=== PATIENT | male | born 1970 | race Caucasian/White ===

== ENCOUNTER 2023-07-19 20:25 | Emergency (ER) | payer BC, SELFPAY ==
[2023-07-19 20:30] VITALS: BP 179/88; PULSE 74; RESP 18; TEMP 37.1; O2SAT 99; BMI 36.3
--- NOTE | 2023-07-19 20:37 | ECG_ITS ---
[facility] Test Date: 2023-07-19 Pat Name: Yash Allen Department: Room: - Gender: Male Audiovisual Equipment Operator: : 1970 Requested By: [id number] Order Number: [id number] Reading MD: BRENNON SARMIENTO Measurements Intervals [place] Rate: 61 P: 56 NV: 164 QRS: 53 QRSD: 94 T: 28 QT: 378 QTc: 382 Interpretive Statements 1100 Sinus rhythm 9110 normal ECG No previous ECG available for comparison Electronically Signed On 07-20-2023 11:09:19 EDT by BRENNON SARMIENTO
[2023-07-19 20:47] LABS: Basophils Percent Auto 0.3 % (0.2-2.0); Eosinophils Absolute Auto 0.1 10^3/uL (0.0-0.7); Hematocrit 47.1 % (42.0-54.0); Hemoglobin 15.8 g/dL (14.0-18.0); Immature Granulocytes Abs Auto 0.01 10^3/uL (0.00-0.03); Immature Granulocytes Pct Auto 0.1 % (0.0-0.5); Lymphocytes Absolute Auto 2.6 10^3/uL (1.2-3.8); Lymphocytes Percent Auto 37.3 % (20.5-60.0); Mean Corpuscular HGB Conc 33.5 g/dL (29.9-35.2); Mean Corpuscular Hemoglobin 30.6 pg (25.9-34.0); Mean Corpuscular Volume 91.3 fL (80.0-94.0); Mean Platelet Volume 10.9 fL (9.5-13.5); Monocytes Absolute Auto 0.7 10^3/uL (0.3-0.8); Monocytes Percent Auto 10.2 % (1.7-12.0); Neutrophils Absolute Auto 3.6 10^3/uL (1.4-6.5); Neutrophils Percent Auto 51.1 % (43.0-75.0); Platelet Count 197 10^3/uL (150-450); Red Blood Count 5.16 10^6/uL (4.70-6.10)
[2023-07-19 20:47] LABS: Bilirubin Urine NEGATIVE (NEGATIVE); Blood Urine NEGATIVE (NEGATIVE); Clarity Urine CLEAR (CLEAR); Color Urine LT. YELLOW (YELLOW); Glucose Urine UA NEGATIVE (NEGATIVE); Ketones Urine NEGATIVE (NEGATIVE); Leukocyte Esterase Urine NEGATIVE (NEGATIVE); Nitrite Urine NEGATIVE (NEGATIVE); Protein Urine NEGATIVE (NEG/TRACE); Specific Gravity Urine <=1.005 (1.005-1.025); Urine Microscopic Indicated NO; Urobilinogen Urine 0.2 EU/dL (0.2-1.0); pH Urine 7.5 (5.0-9.0)
--- NOTE | 2023-07-19 20:47 | CT_ITS ---
[address] [address] Patient Name: DEWAYNE KUO MRN: [id number] date: 1970 Sex: M Assigned Patient Location: ER Current Patient Location: ED.MAIN Accession/Order Number: [id number] Exam Date: 07/19/2023 21:32 Report Date: 07/19/2023 22:35 At the request of: SHARLA FORREST Procedure: CT abdomen pelvis w con EXAM: CT abdomen pelvis w con, 07/19/2023 HISTORY: Abdominal pain COMPARISON: None. TECHNIQUE: Contrast CT scan of the abdomen and pelvis was performed using 100 mL of Omnipaque 300 intravenous iodine contrast. Coronal and sagittal reconstructions were performed. Dose reduction techniques were achieved by using automated exposure control and/or adjustment of mA and/or kV according to patient size and/or use of iterative reconstruction technique. FINDINGS: Mild hepatic steatosis and hepatomegaly. The liver measures 23 cm in the superior-inferior dimension. No focal hepatic lesion is seen. Patent portal venous system. The spleen, pancreas, gallbladder, bile ducts and both adrenal glands are unremarkable. No bowel loop dilatation or bowel wall thickening. No free fluid in the peritoneal cavity. Unremarkable appendix. No abdominal or pelvic lymphadenopathy. Small right inguinal hernia containing fatty tissue. Both kidneys demonstrate uniform enhancement without focal lesion. No hydronephrosis or hydroureter. Unremarkable urinary bladder. Prostate gland is not enlarged. Mild atherosclerotic calcification of the abdominal aorta and iliac arteries. Unremarkable IVC. No acute osseous findings. Scans through the lung bases demonstrate bilateral basal subsegmental atelectasis. CT/CT abdomen pelvis w con IMPRESSION: 1. Mild hepatic steatosis and hepatomegaly. 2. No acute findings in the abdomen or pelvis. Electronically authenticated by: ELENI BOX Date: 07/19/2023 22:35
[2023-07-19 20:49] VITALS: PULSE 68; RESP 22
--- NOTE | 2023-07-19 20:49 | ED.ABDPAIN1 ---
Documented by User: STEPHANIE Joshua 07/19/23 22:11 HPI - Abdominal Pain General Chief Complaint: Abdominal Pain Stated Complaint: uppergastric pain Time Seen by Provider: 07/19/23 20:36 Source: patient Mode of arrival: walk-in History of Present Illness HPI narrative: patient is a 53-year-old male who presents to the emergency department for the evaluation of right upper quadrant abdominal pain that began approximately twelve hours ago. He states he has some pain radiation to the epigastrium. He denies chest pain, shortness breath, fevers, chills, vomiting. He had diarrhea earlier today. He states eating has made his pain worse. He has had no previous abdominal surgeries. He denies urinary symptoms. He denies any injuries or traumas. He states laying flat improves his symptoms. No medications taken prior to arrival. Related Data Home Medications Medication Instructions Recorded Confirmed levothyroxine 100 mcg tablet 100 mcg PO DAILY 07/19/23 07/19/23 pregabalin 75 mg capsule 75 mg PO Q12H 07/19/23 07/19/23 Previous Rx's Medication Instructions Recorded cyclobenzaprine 10 mg tablet 10 mg PO Q8H PRN muscle spasm 5 07/19/23 days #15 tabs Allergies Allergy/AdvReac Type Severity Reaction Status Date / Time No Known Drug Allergies Allergy Verified 07/19/23 20:29 Review of Systems ROS Constitutional Denies: fever or chills Ears, nose, mouth, and throat Denies: throat pain Cardiovascular Denies: chest pain Respiratory Denies: shortness of breath or cough Gastrointestinal Reports: abdominal pain and diarrhea; Denies: nausea or vomiting Genitourinary Denies: painful urination Musculoskeletal Denies: back pain Integumentary/Breast Denies: rash Neurological Denies: headache PFSH PFSH Social History Smoking status: Former smoker Exam Narrative Exam Narrative: Gen.: Awake, alert, in no distress Head: Normocephalic, atraumatic ENT: Moist mucous membranes Respiratory: No respiratory distress, lungs clear bilaterally Cardio: Regular rate and rhythm Gastrointestinal: Abdomen is soft, nondistended and mildly tender in the right upper quadrant with no guarding or rebound Extremities: Moves extremities equally Psych: Normal mood and affect Neuro: No focal neuro deficit Skin: Warm, dry, intact Constitutional Vital Signs, click to edit/add: Last Vital Signs Temp 98.7 F 07/19/23 20:30 Pulse 59 L 07/19/23 21:00 Resp 21 07/19/23 21:00 BP 150/83 H 07/19/23 21:00 Pulse Ox 95 07/19/23 21:00 O2 Del Method Room Air 07/19/23 20:30 Course Vital Signs Vital signs: Vital Signs Temperature 98.7 F 07/19/23 20:30 Pulse Rate 74 07/19/23 20:30 Respiratory Rate 18 07/19/23 20:30 Blood Pressure 179/88 H 07/19/23 20:30 Pulse Oximetry 99 07/19/23 20:30 Oxygen Delivery Method Room Air 07/19/23 20:30 Temperature 98.7 F 07/19/23 20:30 Pulse Rate 59 L 07/19/23 21:00 Respiratory Rate 21 07/19/23 21:00 Blood Pressure 150/83 H 07/19/23 21:00 Pulse Oximetry 95 07/19/23 21:00 Oxygen Delivery Method Room Air 07/19/23 20:30 MDM - Abdominal Pain MDM Narrative Medical decision making narrative: 2210: patient medicated with IV fluids, Toradol, Pepcid and Zofran. Abdomen is soft and benign in the emergency department. Lab studies, EKG and troponin are unremarkable, patient with minimal elevation of AST. CT of abdomen and pelvis was performed and these results are pending at this time. Case turned over to attending physician for disposition. Medical Records Attestation: I reviewed the patient's medical records. Lab Data Attestation: I reviewed the patient's lab results. Labs: Lab Results 07/19/23 07/19/23 Range/Units 20:34 20:40 WBC 7.0 (4.0-11.0) 10^3/uL RBC 5.16 (4.70-6.10) 10^6/uL Hgb 15.8 (14.0-18.0) g/dL Hct 47.1 (42.0-54.0) % MCV 91.3 (80.0-94.0) fL MCH 30.6 (25.9-34.0) pg MCHC 33.5 (29.9-35.2) g/dL RDW 13.0 (11.0-15.0) % Plt Count 197 (150-450) 10^3/uL MPV 10.9 (9.5-13.5) fL Neut % (Auto) 51.1 (43.0-75.0) % Lymph % (Auto) 37.3 (20.5-60.0) % [place] % (Auto) 10.2 (1.7-12.0) % Eos % (Auto) 1.0 (0.9-7.0) % Baso % (Auto) 0.3 (0.2-2.0) % Neut # (Auto) 3.6 (1.4-6.5) 10^3/uL Lymph # (Auto) 2.6 (1.2-3.8) 10^3/uL [place] # (Auto) 0.7 (0.3-0.8) 10^3/uL Eos # (Auto) 0.1 (0.0-0.7) 10^3/uL Baso # (Auto) 0.0 (0.0-0.1) 10^3/uL Abs Immat Gran (auto) 0.01 (0.00-0.03) 10^3/uL Imm/Tot Granulo (auto) 0.1 (0.0-0.5) % Sodium 141 (136-145) mmol/L Potassium 3.7 (3.5-5.1) mmol/L Chloride 104 (98-107) mmol/L Carbon Dioxide 32.7 H (21.0-32.0) mmol/L Anion Gap 8.0 BUN 17.0 (7.0-18.0) mg/dL Creatinine 1.31 H (0.70-1.30) mg/dL Est GFR ( Amer) >60 (>=60) Est GFR (Non-Af Amer) 57 L (>=60) BUN/Creatinine Ratio 13.0 Glucose 88 (74-106) mg/dL Lactate 1.4 (0.4-2.0) mmol/L Calcium 10.2 H (8.5-10.1) mg/dL Total Bilirubin 0.7 (0.2-1.0) mg/dL AST 26 (15-37) U/L ALT 67 H (16-63) U/L Alkaline Phosphatase 57 (46-116) U/L Troponin I High Sens 10.0 (4.0-76.1) pg/mL Total Protein 8.1 (6.4-8.2) g/dL Albumin 4.2 (3.4-5.0) g/dL Globulin 3.9 g/dL Albumin/Globulin Ratio 1.1 Lipase 140.0 (73.0-393.0) U/L Urine Color Lt. yellow (YELLOW) Urine Clarity Clear (CLEAR) Urine pH 7.5 (5.0-9.0) Ur Specific [place] <=1.005 A (1.005-1.025) Urine Protein Negative (NEG/TRACE) mg/dL Urine Glucose (UA) Negative (NEGATIVE) mg/dL Urine Ketones Negative (NEGATIVE) mg/dL Urine Occult Blood Negative (NEGATIVE) Urine Nitrite Negative (NEGATIVE) Urine Bilirubin Negative (NEGATIVE) Urine Urobilinogen 0.2 (0.2-1.0) EU/dL Ur Leukocyte Esterase Negative (NEGATIVE) ECG Data Attestation: I personally reviewed and interpreted this ECG as follows: (normal sinus rhythm at a rate of sixty-one, no acute ST elevation or ectopy. EKG reviewed by attending physician) ECG interpretation date: 07/19/23 ECG interpretation time: 20:53 Discharge Plan Discharge Chief Complaint: Abdominal Pain Clinical Impression: Abdominal pain, Fatty liver Patient Disposition: Home, Self-Care Time of Disposition Decision: 23:11 Condition: Good Mode of Transportation: Private Vehicle Prescriptions / Home Meds: New cyclobenzaprine 10 mg tablet 10 mg PO Q8H PRN (Reason: muscle spasm) 5 Days Qty: 15 0RF No Action levothyroxine 100 mcg tablet 100 mcg PO DAILY pregabalin 75 mg capsule 75 mg PO Q12H Instructions: Liver Disease Diet (DC), Flank Pain (ED) Stand Alone Forms: Portal Instructions Referrals: Physician,Non-Staff, MD [Primary Care Provider] - 1 week Discharge Date/Time: 07/19/23 23:28 Documented by User: Michela Ramirez MD 07/20/23 03:09 HPI - Abdominal Pain General Chief Complaint: Abdominal Pain Stated Complaint: uppergastric pain Time Seen by Provider: 07/19/23 20:36 Related Data Home Medications Medication Instructions Recorded Confirmed levothyroxine 100 mcg tablet 100 mcg PO DAILY 07/19/23 07/19/23 pregabalin 75 mg capsule 75 mg PO Q12H 07/19/23 07/19/23 Previous Rx's Medication Instructions Recorded cyclobenzaprine 10 mg tablet 10 mg PO Q8H PRN muscle spasm 5 07/19/23 days #15 tabs Allergies Allergy/AdvReac Type Severity Reaction Status Date / Time No Known Drug Allergies Allergy Verified 07/19/23 20:29 PFSH PFSH Social History Smoking status: Former smoker Exam Constitutional Vital Signs, click to edit/add: Last Vital Signs Temp 98.7 F 07/19/23 20:30 Pulse 59 L 07/19/23 21:00 Resp 21 07/19/23 21:00 BP 150/83 H 07/19/23 21:00 Pulse Ox 95 07/19/23 21:00 O2 Del Method Room Air 07/19/23 20:30 Course Vital Signs Vital signs: Vital Signs Temperature 98.7 F 07/19/23 20:30 Pulse Rate 74 07/19/23 20:30 Respiratory Rate 18 07/19/23 20:30 Blood Pressure 179/88 H 07/19/23 20:30 Pulse Oximetry 99 07/19/23 20:30 Oxygen Delivery Method Room Air 07/19/23 20:30 Temperature 98.7 F 07/19/23 20:30 Pulse Rate 59 L 07/19/23 21:00 Respiratory Rate 21 07/19/23 21:00 Blood Pressure 150/83 H 07/19/23 21:00 Pulse Oximetry 95 07/19/23 21:00 Oxygen Delivery Method Room Air 07/19/23 20:30 MDM - Abdominal Pain MDM Narrative Medical decision making narrative: 221: patient medicated with IV fluids, Toradol, Pepcid and Zofran. Abdomen is soft and benign in the emergency department. Lab studies, EKG and troponin are unremarkable, patient with minimal elevation of AST. CT of abdomen and pelvis was performed and these results are pending at this time. Case turned over to attending physician for disposition. Attending physician attestation I have seen and evaluated this patient. I have reviewed the mid-level provider?s documentation medical decision making and treatment plan. I agree with the mid-level provider?s assessment, and plan. Results discussed with patient. CT scan does not show anything acute. Patient and I discussed hepatomegaly With fatty liver. He is given a prescription for an ultrasound of gallbladder or liver to be done as an outpatient with results going to his primary care doctor. The patient was given a prescription for Flexeril as he requested a muscle relaxant to see if that would help. The patient will await fatty foods and fried foods. He will return to the emergency department. At this time the patient is without objective evidence of an acute process requiring hospitalization or inpatient management. The patient has remained hemodynamically stable. No additional indication for emergent studies at this time. I answered all questions. Discussed discharge instructions including standard anticipatory guidance and what should prompt a return to the emergency department, including if they get worse are not getting better or develops any new or concerning symptoms. I've given them specific time frame in which to follow-up, and who to follow-up with. The patient demonstrates understanding. Patient is nontoxic and stable for discharge with outpatient follow-up. This note was created with the assistance of a speech recognition program. Although the intention is to generate documents that actually reflects the content of the visit, no guarantees can be provided that every mistake has been identified and corrected by editing. Differential Diagnosis Differential diagnosis: Likely abdominal pain, calculus of kidney, gastroenteritis and pancreatitis Lab Data Labs: Lab Results 07/19/23 07/19/23 Range/Units 20:34 20:40 WBC 7.0 (4.0-11.0) 10^3/uL RBC 5.16 (4.70-6.10) 10^6/uL Hgb 15.8 (14.0-18.0) g/dL Hct 47.1 (42.0-54.0) % MCV 91.3 (80.0-94.0) fL MCH 30.6 (25.9-34.0) pg MCHC 33.5 (29.9-35.2) g/dL RDW 13.0 (11.0-15.0) % Plt Count 197 (150-450) 10^3/uL MPV 10.9 (9.5-13.5) fL Neut % (Auto) 51.1 (43.0-75.0) % Lymph % (Auto) 37.3 (20.5-60.0) % [place] % (Auto) 10.2 (1.7-12.0) % Eos % (Auto) 1.0 (0.9-7.0) % Baso % (Auto) 0.3 (0.2-2.0) % Neut # (Auto) 3.6 (1.4-6.5) 10^3/uL Lymph # (Auto) 2.6 (1.2-3.8) 10^3/uL [place] # (Auto) 0.7 (0.3-0.8) 10^3/uL Eos # (Auto) 0.1 (0.0-0.7) 10^3/uL Baso # (Auto) 0.0 (0.0-0.1) 10^3/uL Abs Immat Gran (auto) 0.01 (0.00-0.03) 10^3/uL Imm/Tot Granulo (auto) 0.1 (0.0-0.5) % Sodium 141 (136-145) mmol/L Potassium 3.7 (3.5-5.1) mmol/L Chloride 104 (98-107) mmol/L Carbon Dioxide 32.7 H (21.0-32.0) mmol/L Anion Gap 8.0 BUN 17.0 (7.0-18.0) mg/dL Creatinine 1.31 H (0.70-1.30) mg/dL Est GFR ( Amer) >60 (>=60) Est GFR (Non-Af Amer) 57 L (>=60) BUN/Creatinine Ratio 13.0 Glucose 88 (74-106) mg/dL Lactate 1.4 (0.4-2.0) mmol/L Calcium 10.2 H (8.5-10.1) mg/dL Total Bilirubin 0.7 (0.2-1.0) mg/dL AST 26 (15-37) U/L ALT 67 H (16-63) U/L Alkaline Phosphatase 57 (46-116) U/L Troponin I High Sens 10.0 (4.0-76.1) pg/mL Total Protein 8.1 (6.4-8.2) g/dL Albumin 4.2 (3.4-5.0) g/dL Globulin 3.9 g/dL Albumin/Globulin Ratio 1.1 Lipase 140.0 (73.0-393.0) U/L Urine Color Lt. yellow (YELLOW) Urine Clarity Clear (CLEAR) Urine pH 7.5 (5.0-9.0) Ur Specific [place] <=1.005 A (1.005-1.025) Urine Protein Negative (NEG/TRACE) mg/dL Urine Glucose (UA) Negative (NEGATIVE) mg/dL Urine Ketones Negative (NEGATIVE) mg/dL Urine Occult Blood Negative (NEGATIVE) Urine Nitrite Negative (NEGATIVE) Urine Bilirubin Negative (NEGATIVE) Urine Urobilinogen 0.2 (0.2-1.0) EU/dL Ur Leukocyte Esterase Negative (NEGATIVE) Discharge Plan Discharge Chief Complaint: Abdominal Pain Clinical Impression: Abdominal pain, Fatty liver Patient Disposition: Home, Self-Care Time of Disposition Decision: 23:11 Condition: Good Mode of Transportation: Private Vehicle Prescriptions / Home Meds: New cyclobenzaprine 10 mg tablet 10 mg PO Q8H PRN (Reason: muscle spasm) 5 Days Qty: 15 0RF No Action levothyroxine 100 mcg tablet 100 mcg PO DAILY pregabalin 75 mg capsule 75 mg PO Q12H Instructions: Liver Disease Diet (DC), Flank Pain (ED) Stand Alone Forms: Portal Instructions Referrals: Physician,Non-Staff, MD [Primary Care Provider] - 1 week Discharge Date/Time: 07/19/23 23:28
[2023-07-19 20:50] VITALS: PULSE 70; RESP 20
[2023-07-19 20:51] VITALS: BP 154/83; PULSE 63; RESP 18; O2SAT 94
[2023-07-19] MEDS: ONDANSETRON PF 4 MG/2 ML VIAL IV (20:56)
[2023-07-19] MEDS: 0.9 % SODIUM CHLORIDE 1,000 ML 999 ML IV (20:56)
[2023-07-19] MEDS: FAMOTIDINE/PF 20 MG/2 ML VIAL IV (20:57)
[2023-07-19] MEDS: KETOROLAC TROMETHAMINE 30 MG/ML VIAL IVP (20:57)
[2023-07-19 21:00] VITALS: BP 150/83; PULSE 59; RESP 21; O2SAT 95
[2023-07-19 21:04] LABS: Alanine Aminotransferase 67 U/L (16-63); Albumin Globulin Ratio 1.1; Albumin Level 4.2 g/dL (3.4-5.0); Alkaline Phosphatase 57 U/L (46-116); Aspartate Amino Transferase 26 U/L (15-37); Bilirubin Total 0.7 mg/dL (0.2-1.0); Calcium 10.2 mg/dL (8.5-10.1); Carbon Dioxide 32.7 mmol/L (21.0-32.0); Chloride 104 mmol/L (98-107); Estimated GFR (African America >60 (>=60); Estimated GFR (Non-African Ame 57 (>=60); Globulin 3.9 g/dL; Glucose 88 mg/dL (74-106); Potassium 3.7 mmol/L (3.5-5.1); Sodium 141 mmol/L (136-145); Total Protein 8.1 g/dL (6.4-8.2)
[2023-07-19 21:05] LABS: Lactate/Lactic Acid 1.4 mmol/L (0.4-2.0)
== END 2023-07-19 23:28 | disposition home or self-care (01) ==
PROVIDERS: Physician Assistant; Emergency Provider Emergency Medicine
DX: R10.9 Unspecified abdominal pain (principal); K76.0 Fatty (change of) liver, not elsewhere classified; Z79.890 Hormone replacement therapy; Z79.899 Other long term (current) drug therapy; Z87.891 Personal history of nicotine dependence
CPT/HCPCS: 36415; 74177; 80053; 81003; 83605; 83690; 84484; 85025; 93005; 96361; 96374; 96375; 99285; Q9967

== ENCOUNTER 2023-07-25 11:04 | Outpatient (OUT) | payer BC, SELFPAY ==
--- NOTE | 2023-07-25 | US_ITS ---
The [address] [address] Patient Name: DEWAYNE KUO MRN: [id number] date: 1970 Sex: M Assigned Patient Location: US Current Patient Location: US Accession/Order Number: [id number] Exam Date: 07/25/2023 11:30 Report Date: 07/25/2023 16:47 At the request of: LYLE BARAJAS Procedure: US right upper quadrant EXAM: US right upper quadrant HISTORY: Pain COMPARISON: None. TECHNIQUE: Grayscale and color ultrasound FINDINGS: The liver is normal in size and contour with no focal mass. The liver measures 18.3 cm in length. Diffuse increase in echotexture. Hepatopedal flow in the main portal vein with a velocity of 19 cm/s. The gallbladder is normal in size. The gallbladder wall measures 2.7 mm, normal. No pericholecystic fluid. The common bile duct measures 3.5 mm, normal. Visualized pancreas is slightly hyperechogenic possibly representing partial fatty replacement The right kidney is normal measuring 10.8 x 4.8 x 5.0 cm. No solid cortical mass or hydronephrosis. The cortex measures 1.2 cm US/US right upper quadrant IMPRESSION: Echogenic liver suggesting hepatic steatosis Electronically authenticated by: KOREY JOHNSON Date: 07/25/2023 16:47
== END 2023-07-25 11:05 | disposition home or self-care (01) ==
PROVIDERS: Visit Provider Emergency Medicine
DX: R10.11 Right upper quadrant pain (principal)
CPT/HCPCS: 76705